=== PATIENT | male | born 1945 | race Native Hawaiian/Other Pacific Islander ===

== ENCOUNTER → 2017-10-17 | Day surgery (SDC) | payer OTHER ==
[2017-10-17 09:06] LABS: PLATELET COUNT 152 K/uL (142-355)
[2017-10-17 09:11] LABS: POTASSIUM 3.6 mmol/L (3.6-5.2)
== END ==
LOC: OR 08:17
PROVIDERS: Student in an Organized Health Care Education/Training Program
DX: Z53.8 Procedure and treatment not carried out for other reasons (principal); I48.91 Unspecified atrial fibrillation
CPT/HCPCS: 80053; 85027; 85610; 93005; J0180; J0690; J1100; J1170; J3010

== ENCOUNTER 2017-12-15 08:42 | Outpatient (CLI) | payer OTHER ==
[2017-12-15 09:12] LABS: PLATELET COUNT 148 K/uL (142-355)
[2017-12-15 09:36] LABS: POTASSIUM 4.4 mmol/L (3.6-5.2)
== END 2017-12-15 19:37 | disposition home or self-care (01) ==
LOC: LABW 08:42
PROVIDERS: Family Medicine
DX: M54.5 Low back pain (principal); E11.9 Type 2 diabetes mellitus without complications; N18.3 Chronic kidney disease, stage 3 (moderate)
CPT/HCPCS: 36415; 80053; 80061; 81000; 82306; 83036; 83735; 84154; 84439; 84443; 84550; 85027